=== PATIENT | male | born 1960 | race African-American/Black ===

== ENCOUNTER 2016-10-17 09:56 | Inpatient (IN) | payer OTHER ==
[2016-10-17 11:03] VITALS: BMI 27.4
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
[2016-10-17] MEDS ORDERED: MENTHOL/PHENOL 1 EACH UD MM PRN (12:53)
[2016-10-17] MEDS ORDERED: NICOTINE POLACRILEX 4 MG GUM BC PRN (12:53)
[2016-10-17] MEDS ORDERED: MAGNESIUM CITRATE 300 ML BOTTLE PO PRN (12:53)
[2016-10-17] MEDS ORDERED: LOPERAMIDE HCL 2 MG CAPSULE PO PRN (12:53)
[2016-10-17] MEDS ORDERED: hydrOXYzine PAMOATE 25 MG CAPSULE (FP) PO PRN (12:53)
[2016-10-17] MEDS ORDERED: guaiFENesin/D-METHORPHAN HB 10 ML UNIT-DOSE CUPS PO PRN (12:53)
[2016-10-17] MEDS ORDERED: diphenhydrAMINE HCL 50 MG CAPSULE PO PRN (12:53)
[2016-10-17] MEDS ORDERED: IBUPROFEN 400 MG TABLET (FP) PO PRN (12:53)
[2016-10-17] MEDS ORDERED: P-EPHED 60MG/TRIPROLIDI 2.5MG TABLET PO PRN (12:53)
[2016-10-17] MEDS ORDERED: MAG HYDROX/AL HYDROX/SIMETH 30 ML UNIT-DOSE CUP PO PRN (12:53)
[2016-10-17] MEDS ORDERED: MAGNESIUM HYDROX 2400MG/30ML ORAL SUSPENSION 30 ML CUP PO PRN (12:53)
[2016-10-17] MEDS ORDERED: CLONIDINE HCL PO SCH (14:00)
[2016-10-17] MEDS ORDERED: TUBERCULIN PPD 5 TU/0.1ML VIAL ID ONE (15:45)
[2016-10-17] MEDS: NICOTINE 21 MG/24 HOURS TOPICAL PATCH TD SCH (15:46)
[2016-10-17] MEDS ORDERED: cloNIDine HCL 0.1 MG TABLET PO ONE (16:00)
[2016-10-17 18:32] LABS: MCH 31.3 pg (25.7-33.7); MCHC 34.6 g/dl (32.0-35.9); MEAN CELL VOLUME 90.4 fl (80-96); MEAN PLT VOLUME 9.2 fl (7.5-11.1); PLATELET COUNT 267 K/MM3 (134-434); WHITE BLOOD COUNT 8.6 K/mm3 (4.0-10.0)
[2016-10-17 19:06] LABS: ALBUMIN 3.8 g/dl (3.4-5.0); ANION GAP 8 (8-16); CALCIUM 8.8 mg/dL (8.5-10.1); CO2 31 mmol/L (21-32); GLUCOSE,RANDOM 98 mg/dL (74-106)
[2016-10-17 19:11] LABS: ALK PHOS 63 U/L (45-117); CREATININE 0.9 mg/dL (0.7-1.3); SGOT/AST 53 U/L (15-37); SGPT/ALT 59 U/L (12-78); TOT PROT 7.6 g/dl (6.4-8.2)
[2016-10-17] MEDS: THIAMINE HCL 100 MG TABLET (FP) PO SCH (22:45)
[2016-10-17] MEDS: CLONIDINE HCL PO SCH (22:45)
[2016-10-17 23:14] LABS: URINE APPEARANCE CLEAR; URINE BILIRUBIN NEGATIVE (NEGATIVE); URINE BLOOD NEGATIVE (NEGATIVE); URINE COLOR LT. YELLOW; URINE GLUCOSE (UA) NEGATIVE (NEGATIVE); URINE KETONE NEGATIVE (NEGATIVE); URINE NITRITE NEGATIVE (NEGATIVE); URINE PROTEIN NEGATIVE (NEGATIVE); URINE UROBILINOGEN 0.2 mg/dL (0.2-1.0)
[2016-10-18] MEDS: CLONIDINE HCL PO SCH ×3 (06:14→21:31)
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
[2016-10-18] MEDS: PRENATAL VITAMINS W/ FOLIC ACID TABLET (FP) PO SCH (10:12)
[2016-10-18] MEDS: NICOTINE 21 MG/24 HOURS TOPICAL PATCH TD SCH (10:12)
[2016-10-18 12:38] LABS: HIV 1 & 2 AB NEGATIVE; HIV 1 AGp24 NEGATIVE
[2016-10-18] MEDS: QUEtiapine FUMARATE 50 MG TABLET PO SCH (21:31)
[2016-10-18] MEDS: THIAMINE HCL 100 MG TABLET (FP) PO SCH (21:31)
[2016-10-19] MEDS: CLONIDINE HCL PO SCH ×3 (06:04→21:28)
--- NOTE | 2016-10-19 09:58 | EKG ---
Test Reason : Blood Pressure : / mmHG Vent. Rate : 048 BPM Atrial Rate : 048 BPM P-R Int : 196 ms QRS Dur : 086 ms QT Int : 502 ms P-R-T Axes : 060 058 047 degrees QTc Int : 448 ms SINUS BRADYCARDIA POSSIBLE LEFT ATRIAL ENLARGEMENT LEFT VENTRICULAR HYPERTROPHY ABNORMAL ECG NO PREVIOUS ECGS AVAILABLE Confirmed by AIXA ESCALANTE, SUPRIYA ([id number]) on 10/19/2016 9:58:49 AM Referred By: Alycia Gordon Confirmed By:SUPRIYA KRUSE MD
[2016-10-19] MEDS: PRENATAL VITAMINS W/ FOLIC ACID TABLET (FP) PO SCH (10:14)
[2016-10-19] MEDS: NICOTINE 21 MG/24 HOURS TOPICAL PATCH TD SCH (10:15)
[2016-10-19] MEDS ORDERED: amLODIPine BESYLATE 5 MG TABLET (FP) PO SCH (12:30)
[2016-10-19] MEDS: THIAMINE HCL 100 MG TABLET (FP) PO SCH (21:28)
[2016-10-19] MEDS: QUEtiapine FUMARATE 50 MG TABLET PO SCH (21:29)
[2016-10-20] MEDS: CLONIDINE HCL PO SCH ×3 (05:06→21:37)
[2016-10-20] MEDS: ACETAMINOPHEN 325 MG TABLET (FP) PO PRN (05:06)
[2016-10-20] MEDS: PRENATAL VITAMINS W/ FOLIC ACID TABLET (FP) PO SCH (10:36)
[2016-10-20] MEDS: NICOTINE 21 MG/24 HOURS TOPICAL PATCH TD SCH (10:38)
[2016-10-20] MEDS: amLODIPine BESYLATE 5 MG TABLET (FP) PO SCH ×2 (10:38→21:37)
[2016-10-20] MEDS: THIAMINE HCL 100 MG TABLET (FP) PO SCH (21:37)
[2016-10-20] MEDS: QUEtiapine FUMARATE 50 MG TABLET PO SCH (21:37)
[2016-10-21] MEDS ORDERED: cloNIDine HCL 0.1 MG TABLET PO ONE (00:51)
[2016-10-21] MEDS: ACETAMINOPHEN 325 MG TABLET (FP) PO PRN (00:54)
[2016-10-21] MEDS: CLONIDINE HCL PO SCH ×3 (06:15→21:32)
[2016-10-21] MEDS: NICOTINE 21 MG/24 HOURS TOPICAL PATCH TD SCH (10:14)
[2016-10-21] MEDS: amLODIPine BESYLATE 5 MG TABLET (FP) PO SCH (10:14)
[2016-10-21] MEDS: PRENATAL VITAMINS W/ FOLIC ACID TABLET (FP) PO SCH (10:14)
[2016-10-21] MEDS ORDERED: amLODIPine BESYLATE 10 MG TABLET (FP) PO SCH (13:00)
[2016-10-21] MEDS ORDERED: cloNIDine HCL 0.1 MG TABLET PO SCH (14:00)
[2016-10-21] MEDS: QUEtiapine FUMARATE 50 MG TABLET PO SCH (21:34)
[2016-10-21] MEDS: THIAMINE HCL 100 MG TABLET (FP) PO SCH (21:34)
[2016-10-22] MEDS: CLONIDINE HCL PO SCH (06:24)
[2016-10-22] MEDS: amLODIPine BESYLATE 10 MG TABLET (FP) PO SCH (06:24)
[2016-10-22] MEDS: PRENATAL VITAMINS W/ FOLIC ACID TABLET (FP) PO SCH (10:10)
[2016-10-22] MEDS: NICOTINE 21 MG/24 HOURS TOPICAL PATCH TD SCH (10:10)
[2016-10-22] MEDS: cloNIDine HCL 0.1 MG TABLET PO SCH ×2 (14:28→21:38)
[2016-10-22] MEDS: THIAMINE HCL 100 MG TABLET (FP) PO SCH (21:38)
[2016-10-22] MEDS: QUEtiapine FUMARATE 50 MG TABLET PO SCH (21:40)
[2016-10-23] MEDS: ACETAMINOPHEN 325 MG TABLET (FP) PO PRN (03:31)
[2016-10-23] MEDS: cloNIDine HCL 0.1 MG TABLET PO SCH ×3 (06:50→21:44)
[2016-10-23] MEDS: amLODIPine BESYLATE 10 MG TABLET (FP) PO SCH (06:50)
[2016-10-23] MEDS: PRENATAL VITAMINS W/ FOLIC ACID TABLET (FP) PO SCH (10:39)
[2016-10-23] MEDS: NICOTINE 21 MG/24 HOURS TOPICAL PATCH TD SCH (10:39)
[2016-10-23] MEDS: THIAMINE HCL 100 MG TABLET (FP) PO SCH (21:44)
[2016-10-23] MEDS: QUEtiapine FUMARATE 50 MG TABLET PO SCH (21:44)
[2016-10-24] MEDS: cloNIDine HCL 0.1 MG TABLET PO SCH ×3 (06:24→21:30)
[2016-10-24] MEDS: amLODIPine BESYLATE 10 MG TABLET (FP) PO SCH (06:24)
--- NOTE | 2016-10-24 10:02 | PN ---
S Progress Note Note: patient still running high BP on clonidine 0.2 mg tid and norvasc 10mg daily. Agrees to HCTZ 12.5 mg in AM. Will monitor for efficacy patient aware. Patient is resistant to treatment of his bp, insisting on clonidine but c/o MENDOZA at night.
[2016-10-24] MEDS: PRENATAL VITAMINS W/ FOLIC ACID TABLET (FP) PO SCH (10:21)
[2016-10-24] MEDS: NICOTINE 21 MG/24 HOURS TOPICAL PATCH TD SCH (10:22)
[2016-10-24] MEDS: HYDROCHLOROTHIAZIDE 12.5 MG CAPSULE (FP) PO SCH (10:22)
[2016-10-24] MEDS: ACETAMINOPHEN 325 MG TABLET (FP) PO PRN (15:55)
[2016-10-24] MEDS: QUEtiapine FUMARATE 50 MG TABLET PO SCH (21:30)
[2016-10-24] MEDS: THIAMINE HCL 100 MG TABLET (FP) PO SCH (21:30)
[2016-10-25] MEDS: amLODIPine BESYLATE 10 MG TABLET (FP) PO SCH (07:29)
[2016-10-25] MEDS: cloNIDine HCL 0.1 MG TABLET PO SCH ×3 (07:35→22:03)
[2016-10-25] MEDS: NICOTINE 21 MG/24 HOURS TOPICAL PATCH TD SCH (10:25)
[2016-10-25] MEDS: PRENATAL VITAMINS W/ FOLIC ACID TABLET (FP) PO SCH (10:26)
[2016-10-25] MEDS: HYDROCHLOROTHIAZIDE 12.5 MG CAPSULE (FP) PO SCH (10:26)
[2016-10-25] MEDS: QUEtiapine FUMARATE 50 MG TABLET PO SCH (22:03)
[2016-10-25] MEDS: THIAMINE HCL 100 MG TABLET (FP) PO SCH (22:03)
[2016-10-26] MEDS: cloNIDine HCL 0.1 MG TABLET PO SCH ×3 (07:25→21:44)
[2016-10-26] MEDS: amLODIPine BESYLATE 10 MG TABLET (FP) PO SCH (07:25)
--- NOTE | 2016-10-26 10:30 | PN ---
[facility] Progress Note Note: patient informed of risk of elevated BP particularly after a previous heart attack, risk of additional strokes, and another heart attack discussed and possible renal failure. Patient refusing all bp meds, no coopertive nor wanting additional cousneling regarding the matter, interdisciplinary team met with patient. decision made as this was a voluntary treatment and patient was informed of risks of not complying he has the right to refuse bp mediations. Dr. Tong and counseling team aware will adress in treatment. Nursing aware, will offer medications, patient may refuse treatment and bp monitoring.
[2016-10-26] MEDS: NICOTINE 21 MG/24 HOURS TOPICAL PATCH TD SCH (10:55)
[2016-10-26] MEDS: PRENATAL VITAMINS W/ FOLIC ACID TABLET (FP) PO SCH (10:55)
[2016-10-26] MEDS: HYDROCHLOROTHIAZIDE 12.5 MG CAPSULE (FP) PO SCH (10:55)
[2016-10-26] MEDS: THIAMINE HCL 100 MG TABLET (FP) PO SCH (21:44)
[2016-10-26] MEDS: QUEtiapine FUMARATE 50 MG TABLET PO SCH (21:44)
[2016-10-27] MEDS: cloNIDine HCL 0.1 MG TABLET PO SCH ×3 (06:27→22:54)
[2016-10-27] MEDS: amLODIPine BESYLATE 10 MG TABLET (FP) PO SCH (06:28)
[2016-10-27 06:38] VITALS: TEMP 98.1
[2016-10-27] MEDS: NICOTINE 21 MG/24 HOURS TOPICAL PATCH TD SCH (10:25)
[2016-10-27] MEDS: PRENATAL VITAMINS W/ FOLIC ACID TABLET (FP) PO SCH (10:54)
[2016-10-27] MEDS: HYDROCHLOROTHIAZIDE 12.5 MG CAPSULE (FP) PO SCH (11:07)
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
[2016-10-27] MEDS: THIAMINE HCL 100 MG TABLET (FP) PO SCH (22:54)
[2016-10-27] MEDS: QUEtiapine FUMARATE 50 MG TABLET PO SCH (22:54)
[2016-10-28] MEDS: amLODIPine BESYLATE 10 MG TABLET (FP) PO SCH (06:25)
[2016-10-28] MEDS: cloNIDine HCL 0.1 MG TABLET PO SCH ×3 (06:25→21:41)
[2016-10-28] MEDS: HYDROCHLOROTHIAZIDE 12.5 MG CAPSULE (FP) PO SCH (10:27)
[2016-10-28] MEDS: PRENATAL VITAMINS W/ FOLIC ACID TABLET (FP) PO SCH (10:27)
[2016-10-28] MEDS: NICOTINE 21 MG/24 HOURS TOPICAL PATCH TD SCH (10:28)
[2016-10-28] MEDS: QUEtiapine FUMARATE 50 MG TABLET PO SCH (21:41)
[2016-10-28] MEDS: THIAMINE HCL 100 MG TABLET (FP) PO SCH (21:41)
[2016-10-29] MEDS: amLODIPine BESYLATE 10 MG TABLET (FP) PO SCH (07:01)
[2016-10-29] MEDS: cloNIDine HCL 0.1 MG TABLET PO SCH ×3 (07:01→22:01)
[2016-10-29] MEDS: HYDROCHLOROTHIAZIDE 12.5 MG CAPSULE (FP) PO SCH (11:24)
[2016-10-29] MEDS: NICOTINE 21 MG/24 HOURS TOPICAL PATCH TD SCH (11:24)
[2016-10-29] MEDS: PRENATAL VITAMINS W/ FOLIC ACID TABLET (FP) PO SCH (11:24)
[2016-10-29] MEDS: THIAMINE HCL 100 MG TABLET (FP) PO SCH (22:01)
[2016-10-29] MEDS: QUEtiapine FUMARATE 50 MG TABLET PO SCH (22:01)
[2016-10-30] MEDS: amLODIPine BESYLATE 10 MG TABLET (FP) PO SCH (06:53)
[2016-10-30] MEDS: cloNIDine HCL 0.1 MG TABLET PO SCH ×3 (06:53→21:35)
[2016-10-30] MEDS: PRENATAL VITAMINS W/ FOLIC ACID TABLET (FP) PO SCH (13:49)
[2016-10-30] MEDS: NICOTINE 21 MG/24 HOURS TOPICAL PATCH TD SCH (13:49)
[2016-10-30] MEDS: HYDROCHLOROTHIAZIDE 12.5 MG CAPSULE (FP) PO SCH (13:49)
[2016-10-30] MEDS: THIAMINE HCL 100 MG TABLET (FP) PO SCH (21:35)
[2016-10-30] MEDS: QUEtiapine FUMARATE 50 MG TABLET PO SCH (21:35)
[2016-10-31] MEDS: cloNIDine HCL 0.1 MG TABLET PO SCH (05:52)
[2016-10-31] MEDS: amLODIPine BESYLATE 10 MG TABLET (FP) PO SCH (06:26)
[2016-10-31 06:52] VITALS: BP 143/93; PULSE 68
[2016-10-31] MEDS: HYDROCHLOROTHIAZIDE 12.5 MG CAPSULE (FP) PO SCH (10:08)
[2016-10-31] MEDS: PRENATAL VITAMINS W/ FOLIC ACID TABLET (FP) PO SCH (10:08)
[2016-10-31] MEDS: NICOTINE 21 MG/24 HOURS TOPICAL PATCH TD SCH (10:09)
[2016-10-31] MEDS ORDERED: cloNIDine HCL 0.1 MG TABLET PO SCH (10:24)
--- NOTE | 2016-10-31 10:37 | PN ---
Psychiatric Progress Note Vital Signs: Vital Signs Period Temp Pulse Resp BP Sys/Martinez Pulse Ox Last 24 Hr 98.1 F 67-85 16-18 143-171/93-118 Date of Session: 10/31/16 Chief Complaint:: discharge visit HPI: Patient addressed opioid,alcohol, sedative-hypnotic, nicotine dependence comorbid Bipolar I disorder. ROS: HTN, hyperchlesterolemia medically managed. Current Medications: Active Medications Generic Name Dose Route Start Last Admin Trade Name Freq PRN Reason Stop Dose Admin Acetaminophen 650 mg 10/17/16 12:53 10/24/16 15:55 Tylenol - PO 650 mg Q4H PRN Administration PAIN Al Hydroxide/Mg Hydroxide 30 ml 10/17/16 12:53 Mylanta Oral Suspension - PO Q6H PRN DYSPEPSIA Amlodipine Besylate 10 mg 10/22/16 06:00 10/31/16 06:26 Norvasc - PO Not Given DAILY@0600 SOULEYMANE Clonidine 0.1 mg 10/31/16 10:24 Catapres - PO TID SOULEYMANE Diphenhydramine HCl 50 mg 10/17/16 12:53 Benadryl - PO HSMR1 PRN INSOMNIA Eucalyptus/Menthol/Phenol/Sorbitol 1 each 10/17/16 12:53 Cepastat Lozenge - MM Q4H PRN SORE THROAT Guaifenesin 10 ml 10/17/16 12:53 Robitussin Dm - PO Q6H PRN COUGH Hydrochlorothiazide 12.5 mg 10/24/16 10:00 10/31/16 10:08 Hctz - PO 12.5 mg DAILY SOULEYMANE Administration Hydroxyzine Pamoate 25 mg 10/17/16 12:53 Vistaril - PO Q4H PRN AGITATION Ibuprofen 400 mg 10/17/16 12:53 Motrin - PO Q6H PRN SEVERE PAIN Loperamide HCl 4 mg 10/17/16 12:53 Imodium - PO Q6H PRN DIARRHEA Magnesium Citrate 300 ml 10/17/16 12:53 Citroma - PO Q48H PRN CONSTIPATION Magnesium Hydroxide 30 ml 10/17/16 12:53 Milk Of Magnesia - PO DAILY PRN CONSTIPATION Nicotine 21 mg 10/17/16 13:00 10/31/16 10:09 Nicoderm Patch - TD Not Given DAILY SOULEYMANE Nicotine Polacrilex 4 mg 10/17/16 12:53 Nicorette Gum - BC Q2H PRN NICOTINE REPLACEMENT RX Multivit/Folic Acid/Iron 1 tab 10/18/16 10:00 10/31/16 10:08 Vitamins (Sjr) - PO 1 tab DAILY SOULEYMANE Administration Pseudoephedrine/Triprolidine 1 combo 10/17/16 12:53 Actifed - PO TID PRN NASAL CONGESTION Quetiapine Fumarate 50 mg 10/18/16 22:00 10/30/16 21:35 Seroquel - PO Not Given HS SOULEYMANE Thiamine HCl 100 mg 10/17/16 22:00 10/30/16 21:35 Vitamin B1 - PO Not Given HS SOULEYMANE Current Side Effect: No Lab tests ordered: No Lab tests reviewed: Yes Provider note:: Patient has completed today his treatment and met his goals, he will conitnue to address his issues at [place] [facility] outpatient treatment program. He verbalized understanding the negative consequences of his drinking and using drugs on major life areas including physical and mental health. He reports that Seroquel has been effective in terms of mood and sleep improvement, medication well tolerated and scripts provied for 30 days.He was educated on the importance of taking his medication as well not mixing his medication with his drugs. Patient will follow up by a psychiatrist at [facility]. Coping skills and utilization of support system to prevent relapses have been discussed with the patient.Patient is stable for discharge today. Total face to face time:: 35 Mental Status Exam - Mental Status Exam Alert and Oriented to: Time, Place, Person Cognitive Function: Good Patient Appearance: Well Groomed Mood: Hopeful Affect: Appropriate, Mood Congruent Patient Behavior: Appropriate, Cooperative Speech Pattern: Clear, Appropriate Voice Loudness: Normal Thought Process: Intact, Goal Oriented Thought Disorder: Not Present Hallucinations: Denies Suicidal Ideation: Denies Homicidal Ideation: Denies Insight/Judgement: Fair Sleep: Fair Appetite: Fair Muscle strength/Tone: Normal Gait/Station: Normal Psychiatric Treatment Plan - Problem List (1) Nicotine dependence Current Visit: Yes Qualifiers: Nicotine product type: cigarettes Substance use status: in withdrawal Qualified Code(s): F17.213 - Nicotine dependence, cigarettes, with withdrawal (2) Hypercholesterolemia Current Visit: Yes (3) Hypertension Current Visit: Yes Qualifiers: Hypertension type: essential hypertension Qualified Code(s): I10 - Essential (primary) hypertension (4) Opiate dependence Current Visit: Yes (5) Sedative dependence Current Visit: Yes (6) Bipolar I disorder Current Visit: Yes (7) Alcohol dependence Current Visit: Yes
== END 2016-10-31 11:26 | disposition home or self-care (01) | DRG 772 ==
LOC: YASAS 09:56 → Y5N 14:13
PROVIDERS: ADMIT Psychiatry & Neurology Psychiatry; ATTEND Psychiatry & Neurology Psychiatry
PROC: HZ42ZZZ Group Counseling for Substance Abuse Treatment, Cognitive-Behavioral (ICD-10-PCS; principal; 2016-10-17)
DX: F11.20 Opioid dependence, uncomplicated (principal); F13.20 Sedative, hypnotic or anxiolytic dependence, uncomplicated; F10.20 Alcohol dependence, uncomplicated; F17.210 Nicotine dependence, cigarettes, uncomplicated; F31.89 Other bipolar disorder; I10 Essential (primary) hypertension; E78.00 Pure hypercholesterolemia, unspecified; Z91.14 Patient's other noncompliance with medication regimen; M54.5 Low back pain; G89.29 Other chronic pain; Z86.69 Personal history of other diseases of the nervous system and sense organs; Z87.828 Personal history of other (healed) physical injury and trauma; Z91.018 Allergy to other foods; Z91.5 Personal history of self-harm
CPT/HCPCS: 36415; 80053; 81003; 85027; 86593; 87389; 93005; 93010

== ENCOUNTER 2017-10-23 22:37 | Inpatient (IN) | payer OTHER ==
[2017-10-23 23:25] VITALS: BMI 29.1
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
[2017-10-24] MEDS ORDERED: MAGNESIUM CITRATE 300 ML BOTTLE PO PRN (01:42)
[2017-10-24] MEDS ORDERED: NICOTINE POLACRILEX 2 MG GUM BC PRN (01:42)
[2017-10-24] MEDS ORDERED: IBUPROFEN 400 MG TABLET (FP) PO PRN (01:42)
[2017-10-24] MEDS ORDERED: guaiFENesin/D-METHORPHAN HB 10 ML UNIT-DOSE CUPS PO PRN (01:42)
[2017-10-24] MEDS ORDERED: P-EPHED 60MG/TRIPROLIDI 2.5MG TABLET PO PRN (01:42)
[2017-10-24] MEDS ORDERED: METHADONE HCL 10 MG TABLET (FOR DETOX USE ONLY) PO ONE ×3 (01:42→22:00)
[2017-10-24] MEDS ORDERED: LOPERAMIDE HCL 2 MG CAPSULE PO PRN (01:42)
[2017-10-24] MEDS ORDERED: MENTHOL/PHENOL 1 EACH UD MM PRN (01:42)
[2017-10-24] MEDS ORDERED: MAGNESIUM HYDROX 2400MG/30ML ORAL SUSPENSION 30 ML CUP PO PRN (01:42)
[2017-10-24] MEDS ORDERED: ACETAMINOPHEN 325 MG TABLET (FP) PO PRN (01:42)
[2017-10-24] MEDS ORDERED: MAG HYDROX/AL HYDROX/SIMETH 30 ML UNIT-DOSE CUP PO PRN (01:42)
[2017-10-24] MEDS: chlordiazePOXIDE HCL 25 MG CAPSULE PO PRN ×2 (03:37→09:42)
[2017-10-24] MEDS: cloNIDine HCL 0.1 MG TABLET PO SCH ×3 (05:04→13:57)
[2017-10-24] MEDS: chlordiazePOXIDE HCL 25 MG CAPSULE PO SCH ×2 (05:04→11:00)
[2017-10-24] MEDS ORDERED: NICOTINE 21 MG/24 HOURS TOPICAL PATCH TD SCH (10:00)
[2017-10-24] MEDS ORDERED: amLODIPine BESYLATE 10 MG TABLET (FP) PO SCH (10:00)
[2017-10-24] MEDS ORDERED: PRENATAL VITAMINS W/ FOLIC ACID TABLET (FP) PO SCH (10:00)
[2017-10-24 10:19] LABS: HEMATOCRIT 35.7 % (35.4-49); HEMOGLOBIN 11.9 GM/dL (11.7-16.9); MCH 30.4 pg (25.7-33.7); MCHC 33.3 g/dl (32.0-35.9); MEAN CELL VOLUME 91.2 fl (80-96); MEAN PLT VOLUME 9.1 fl (7.5-11.1); PLATELET COUNT 213 K/MM3 (134-434); RBC 3.92 M/mm3 (4.00-5.60); WHITE BLOOD COUNT 7.3 K/mm3 (4.0-10.0)
[2017-10-24 10:35] LABS: CHLORIDE 105 mmol/L (98-107); POTASSIUM 3.5 mmol/L (3.5-5.1); SODIUM 143 mmol/L (136-145)
[2017-10-24 11:17] LABS: ALBUMIN 3.3 g/dl (3.4-5.0); ALK PHOS 54 U/L (45-117); ANION GAP 10 MMOL/L (8-16); BILIRUBIN,TOTAL 0.9 mg/dL (0.2-1); BLOOD UREA NITROGEN 15 mg/dL (7-18); CALCIUM 8.3 mg/dL (8.5-10.1); CO2 28 mmol/L (21-32); SGOT/AST 22 U/L (15-37); SGPT/ALT 20 U/L (13-61); TOT PROT 6.7 g/dl (6.4-8.2)
--- NOTE | 2017-10-24 12:04 | PN ---
[facility] CIWA - CIWA Score Nausea/Vomitin-Mild Nausea/No Vomiting Muscle Tremors: 3 Anxiety: 3 Agitation: 3 Paroxysmal Sweats: 1-Minimal Palms Moist Orientation: 1-Uncertain about Date Tacttile Disturbances: 1-Very Mild Itch/Numbness Auditory Disturbances: 0-None Visual Disturbances: 0-None Headache: 1-Very Mild CIWA-Ar Total Score: 14 BHS COWS - Scale Resting Pulse: 1= [place] 81-100 Sweatin= Chills/Flushing Restless Observation: 1= Difficult to Sit Still Pupil Size: 0= Normal to Room Light Bone or Joint Aches: 2= Severe Diffuse Aches Runny Nose/ Eye Tearin= Runny Nose/Eyes GI Upset > 30mins: 2= Nausea/Diarrhea Tremor Observation of Outstretched Hands: 2= Slight Tremor Visible Yawning Observation: 2= >3x During Session Anxiety or Irritability: 2=Irritable/Anxious Goose Flesh Skin: 0=Smooth Skin COWS Score: 15 [facility] Progress Note (SOAP) Subjective: sweat tremor restlessness irritable body aches trouble sleep at night Objective: 10/24/17 12:07 Vital Signs Temperature 97.8 F 10/24/17 09:47 Pulse Rate 75 10/24/17 09:47 Respiratory Rate 20 10/24/17 09:47 Blood Pressure 184/111 10/24/17 09:47 O2 Sat by Pulse Oximetry (%) Laboratory Last Values WBC 7.3 K/mm3 (4.0-10.0) 10/24/17 07:00 RBC 3.92 M/mm3 (4.00-5.60) L 10/24/17 07:00 Hgb 11.9 GM/dL (11.7-16.9) 10/24/17 07:00 Hct 35.7 % (35.4-49) 10/24/17 07:00 MCV 91.2 fl (80-96) 10/24/17 07:00 MCH 30.4 pg (25.7-33.7) 10/24/17 07:00 MCHC 33.3 g/dl (32.0-35.9) 10/24/17 07:00 RDW 13.0 % (11.9-15.9) 10/24/17 07:00 Plt Count 213 K/MM3 (134-434) D 10/24/17 07:00 MPV 9.1 fl (7.5-11.1) 10/24/17 07:00 Sodium 143 mmol/L (136-145) 10/24/17 07:00 Potassium 3.5 mmol/L (3.5-5.1) 10/24/17 07:00 Chloride 105 mmol/L (98-107) 10/24/17 07:00 Carbon Dioxide 28 mmol/L (21-32) 10/24/17 07:00 Anion Gap 10 MMOL/L (8-16) 10/24/17 07:00 BUN 15 mg/dL (7-18) 10/24/17 07:00 Creatinine 1.0 mg/dL (0.55-1.3) 10/24/17 07:00 Creat Clearance w eGFR > 60 (>60) 10/24/17 07:00 Calcium 8.3 mg/dL (8.5-10.1) L 10/24/17 07:00 Total Bilirubin 0.9 mg/dL (0.2-1) 10/24/17 07:00 AST 22 U/L (15-37) 10/24/17 07:00 ALT 20 U/L (13-61) 10/24/17 07:00 Alkaline Phosphatase 54 U/L (45-117) 10/24/17 07:00 Total Protein 6.7 g/dl (6.4-8.2) 10/24/17 07:00 Albumin 3.3 g/dl (3.4-5.0) L 10/24/17 07:00 RPR Titer Nonreactive (NONREACTIVE) 10/24/17 07:00 lab noted patient refuses clonidine refuses amlodipine offer methadone and librium prn as scheduled along with routine dose Assessment: 10/24/17 12:08 withdrawal sx hypertension Plan: continue detox librium 50 mg one stat
[2017-10-24 12:24] LABS: GLUCOSE,RANDOM 116 mg/dL (74-106)
[2017-10-24 13:49] VITALS: BP 185/113; PULSE 79; TEMP 98.2
[2017-10-24] MEDS ORDERED: chlordiazePOXIDE HCL 25 MG CAPSULE PO ONE ×2 (14:00)
--- NOTE | 2017-10-24 16:45 | EKG ---
Test Reason : Blood Pressure : / mmHG Vent. Rate : 063 BPM Atrial Rate : 063 BPM P-R Int : 180 ms QRS Dur : 086 ms QT Int : 464 ms P-R-T Axes : 055 056 047 degrees QTc Int : 474 ms NORMAL SINUS RHYTHM VOLTAGE CRITERIA FOR LEFT VENTRICULAR HYPERTROPHY ABNORMAL ECG WHEN COMPARED WITH ECG OF 18-OCT-2016 11:13, NO SIGNIFICANT CHANGE WAS FOUND Confirmed by Orlando Her ([id number]) on 10/24/2017 4:44:52 PM Referred By: Confirmed By:Orlando Her
--- NOTE | 2017-10-24 16:49 | DS ---
[facility] Detox Discharge Summary Admission Date: 10/24/17 Discharge Date: 10/24/17 - History Present History: Alcohol Dependence, Opioid Dependence Additional Comments: admitted 10/24/17 for alcohol opiate benzo withdrawal sx insists to leave the detox that "I have the money"patient stated that methadone offer too small dose requests every few hours to have methadone patient received one stat dose of librium due to bp elevation that the patient refuses to take clonidine and amlodipine - Physical Exam Results Vital Signs: Vital Signs Temperature 98.2 F 10/24/17 13:46 Pulse Rate 79 10/24/17 13:46 Respiratory Rate 18 10/24/17 13:46 Blood Pressure 185/113 10/24/17 13:46 O2 Sat by Pulse Oximetry (%) Pertinent Admission Physical Exam Findings: alcohol and opiate withdrawal sx Vital Signs Temperature 98.2 F 10/24/17 13:46 Pulse Rate 79 10/24/17 13:46 Respiratory Rate 18 10/24/17 13:46 Blood Pressure 185/113 10/24/17 13:46 O2 Sat by Pulse Oximetry (%) Laboratory Last Values WBC 7.3 K/mm3 (4.0-10.0) 10/24/17 07:00 RBC 3.92 M/mm3 (4.00-5.60) L 10/24/17 07:00 Hgb 11.9 GM/dL (11.7-16.9) 10/24/17 07:00 Hct 35.7 % (35.4-49) 10/24/17 07:00 MCV 91.2 fl (80-96) 10/24/17 07:00 MCH 30.4 pg (25.7-33.7) 10/24/17 07:00 MCHC 33.3 g/dl (32.0-35.9) 10/24/17 07:00 RDW 13.0 % (11.9-15.9) 10/24/17 07:00 Plt Count 213 K/MM3 (134-434) D 10/24/17 07:00 MPV 9.1 fl (7.5-11.1) 10/24/17 07:00 Sodium 143 mmol/L (136-145) 10/24/17 07:00 Potassium 3.5 mmol/L (3.5-5.1) 10/24/17 07:00 Chloride 105 mmol/L (98-107) 10/24/17 07:00 Carbon Dioxide 28 mmol/L (21-32) 10/24/17 07:00 Anion Gap 10 MMOL/L (8-16) 10/24/17 07:00 BUN 15 mg/dL (7-18) 10/24/17 07:00 Creatinine 1.0 mg/dL (0.55-1.3) 10/24/17 07:00 Creat Clearance w eGFR > 60 (>60) 10/24/17 07:00 Random Glucose 116 mg/dL (74-106) H 10/24/17 07:00 Calcium 8.3 mg/dL (8.5-10.1) L 10/24/17 07:00 Total Bilirubin 0.9 mg/dL (0.2-1) 10/24/17 07:00 AST 22 U/L (15-37) 10/24/17 07:00 ALT 20 U/L (13-61) 10/24/17 07:00 Alkaline Phosphatase 54 U/L (45-117) 10/24/17 07:00 Total Protein 6.7 g/dl (6.4-8.2) 10/24/17 07:00 Albumin 3.3 g/dl (3.4-5.0) L 10/24/17 07:00 RPR Titer Nonreactive (NONREACTIVE) 10/24/17 07:00 labn oted - Treatment Hospital Course: Detox Protocol Followed, Responded well Patient has Accepted a Rehab Referral to: as per counselor arranged - Medication Discharge Medications: Ambulatory Orders Quetiapine Fumarate [Seroquel -] 50 mg PO HS 10/17/16 Quetiapine Fumarate [Seroquel -] 50 mg PO HS #30 tablet 10/31/16 cloNIDine HCL [Catapres -] 0.1 mg PO TID #90 tab 10/31/16 - Diagnosis (1) Alcohol dependence Status: Acute Qualifiers: Substance use status: uncomplicated Qualified Code(s): F10.20 - Alcohol dependence, uncomplicated (2) Drug-induced mood disorder Status: Suspected (3) Nicotine dependence Status: Acute Qualifiers: Nicotine product type: cigarettes Substance use status: in withdrawal Qualified Code(s): F17.213 - Nicotine dependence, cigarettes, with withdrawal (4) Opiate dependence Status: Acute Qualifiers: Substance use status: uncomplicated Qualified Code(s): F11.20 - Opioid dependence, uncomplicated (5) Alcohol dependence with uncomplicated withdrawal Status: Acute (6) Hypercholesterolemia Status: Chronic (7) Hypertension Status: Chronic Qualifiers: Hypertension type: essential hypertension Qualified Code(s): I10 - Essential (primary) hypertension (8) Opioid dependence with withdrawal Status: Acute (9) Sedative, hypnotic or anxiolytic dependence with withdrawal, uncomplicated Status: Acute - AMA Did Patient Leave Against Medical Advice: Yes
--- NOTE | 2017-10-24 17:26 | PN ---
[facility] Progress Note Note: Psychiatric nurse pracitioner note: Malthouse Laborer entered patient's room to speak to Mr. Hodge concerning the psychiatric consultation. Malthouse Laborer informed that patient signed out AMA.
[2017-10-24] MEDS ORDERED: THIAMINE HCL 100 MG TABLET (FP) PO SCH (22:00)
[2017-10-24] MEDS ORDERED: MELATONIN 5 MG TABLETS PO PRN (22:00)
[2017-10-25] MEDS ORDERED: chlordiazePOXIDE HCL 25 MG CAPSULE PO SCH (05:00)
[2017-10-25] MEDS ORDERED: METHADONE HCL 5 MG TABLET (FOR DETOX USE ONLY) PO SCH (10:00)
[2017-10-26] MEDS ORDERED: chlordiazePOXIDE 5 MG CAPSULE PO SCH (05:00)
[2017-10-26] MEDS ORDERED: METHADONE HCL 5 MG TABLET (FOR DETOX USE ONLY) PO SCH (10:00)
[2017-10-27] MEDS ORDERED: chlordiazePOXIDE HCL 10 MG CAPSULE PO SCH (05:00)
[2017-10-28] MEDS ORDERED: METHADONE HCL 10 MG TABLET (FOR DETOX USE ONLY) PO SCH (10:00)
[2017-10-29] MEDS ORDERED: METHADONE HCL 10 MG TABLET (FOR DETOX USE ONLY) PO SCH (06:00)
== END 2017-10-24 14:40 | disposition home or self-care (01) | DRG 773 ==
LOC: YASAS 22:37 → Y6N 10-24 02:31
PROC: HZ2ZZZZ Detoxification Services for Substance Abuse Treatment (ICD-10-PCS; principal; 2017-10-24)
DX: F11.23 Opioid dependence with withdrawal (principal); F10.230 Alcohol dependence with withdrawal, uncomplicated; F13.230 Sedative, hypnotic or anxiolytic dependence with withdrawal, uncomplicated; F12.10 Cannabis abuse, uncomplicated; F17.213 Nicotine dependence, cigarettes, with withdrawal; F19.24 Other psychoactive substance dependence with psychoactive substance-induced mood disorder; F31.9 Bipolar disorder, unspecified; I10 Essential (primary) hypertension; E78.00 Pure hypercholesterolemia, unspecified; I25.2 Old myocardial infarction; R56.9 Unspecified convulsions; M54.5 Low back pain; G89.29 Other chronic pain; Z91.5 Personal history of self-harm
CPT/HCPCS: 36415; 80053; 85027; 86593; 93005; 93010; J0735

== ENCOUNTER 2017-12-25 16:15 | Inpatient (IN) | payer OTHER ==
[~2017-12-25 16:15] MED LIST: METHADONE HCL 10 MG TABLET (FOR DETOX USE ONLY) PO ONE
[2017-12-25 19:50] VITALS: BMI 28.6
[2017-12-25] MEDS ORDERED: METHADONE HCL 10 MG TABLET (FOR DETOX USE ONLY) PO ONE (22:00)
[2017-12-25] MEDS ORDERED: MELATONIN 5 MG TABLETS PO PRN (22:00)
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
[2017-12-25] MEDS ORDERED: NICOTINE POLACRILEX 2 MG GUM BC PRN (23:50)
[2017-12-25] MEDS ORDERED: guaiFENesin/D-METHORPHAN HB 10 ML UNIT-DOSE CUPS PO PRN (23:50)
[2017-12-25] MEDS ORDERED: ACETAMINOPHEN 325 MG TABLET (FP) PO PRN (23:50)
[2017-12-25] MEDS ORDERED: MAGNESIUM HYDROX 2400MG/30ML ORAL SUSPENSION 30 ML CUP PO PRN (23:50)
[2017-12-25] MEDS ORDERED: chlordiazePOXIDE HCL 25 MG CAPSULE PO PRN (23:50)
[2017-12-25] MEDS ORDERED: MAGNESIUM CITRATE 300 ML BOTTLE PO PRN (23:50)
[2017-12-25] MEDS ORDERED: P-EPHED 60MG/TRIPROLIDI 2.5MG TABLET PO PRN (23:50)
[2017-12-25] MEDS ORDERED: MAG HYDROX/AL HYDROX/SIMETH 30 ML UNIT-DOSE CUP PO PRN (23:50)
[2017-12-25] MEDS ORDERED: MENTHOL/PHENOL 1 EACH UD MM PRN (23:50)
[2017-12-25] MEDS ORDERED: LOPERAMIDE HCL 2 MG CAPSULE PO PRN (23:50)
[2017-12-25] MEDS ORDERED: IBUPROFEN 400 MG TABLET (FP) PO PRN (23:50)
[2017-12-26] MEDS ORDERED: METHADONE HCL 10 MG TABLET (FOR DETOX USE ONLY) PO ONE ×5 (01:00→23:00)
[2017-12-26] MEDS ORDERED: chlordiazePOXIDE HCL 25 MG CAPSULE PO ONE (01:00)
[2017-12-26] MEDS: cloNIDine HCL 0.1 MG TABLET PO SCH ×4 (02:03→22:45)
[2017-12-26] MEDS: chlordiazePOXIDE HCL 25 MG CAPSULE PO SCH ×6 (02:07→22:01)
[2017-12-26] MEDS ORDERED: chlordiazePOXIDE HCL 25 MG CAPSULE PO SCH (05:00)
[2017-12-26] MEDS ORDERED: METHADONE HCL 10 MG TABLET PO ONE (10:00)
[2017-12-26] MEDS ORDERED: METHADONE HCL 10 MG TABLET (FOR DETOX USE ONLY) PO SCH (10:00)
[2017-12-26 10:10] LABS: HEMATOCRIT 36.1 % (35.4-49); HEMOGLOBIN 11.8 GM/dL (11.7-16.9); MCH 29.7 pg (25.7-33.7); MCHC 32.7 g/dl (32.0-35.9); MEAN CELL VOLUME 90.9 fl (80-96); PLATELET COUNT 225 K/MM3 (134-434); RBC 3.98 M/mm3 (4.00-5.60); RDW 13.4 % (11.9-15.9); WHITE BLOOD COUNT 7.4 K/mm3 (4.0-10.0)
[2017-12-26] MEDS: PRENATAL VITAMINS W/ FOLIC ACID TABLET (FP) PO SCH (10:23)
[2017-12-26] MEDS: NICOTINE 14 MG/24 HOURS TOPICAL PATCH TD SCH (10:24)
[2017-12-26 10:33] LABS: ALBUMIN 3.3 g/dl (3.4-5.0); ALK PHOS 53 U/L (45-117); ANION GAP 7 MMOL/L (8-16); BILIRUBIN,TOTAL 0.8 mg/dL (0.2-1); BLOOD UREA NITROGEN 21 mg/dL (7-18); CALCIUM 8.6 mg/dL (8.5-10.1); CHLORIDE 102 mmol/L (98-107); CO2 31 mmol/L (21-32); CREATININE 1.1 mg/dL (0.55-1.3); GLUCOSE,RANDOM 94 mg/dL (74-106); POTASSIUM 3.4 mmol/L (3.5-5.1); SGOT/AST 17 U/L (15-37); SGPT/ALT 20 U/L (13-61); SODIUM 141 mmol/L (136-145); TOT PROT 6.7 g/dl (6.4-8.2)
--- NOTE | 2017-12-26 10:46 | PN ---
S Progress Note Note: PATIENT PRESENTS FOR DETOX FROM ETOH AND HEROIN AND ADMITTED LATE LAST NIGHT. PATIENT C/O SHAKES, IRRITABILITY, BODY ACHES AND SWEATING. Vital Signs Temperature 98 F 12/26/17 09:28 Pulse Rate 68 12/26/17 09:28 Respiratory Rate 18 12/26/17 09:28 Blood Pressure 150/87 12/26/17 09:28 O2 Sat by Pulse Oximetry (%) Laboratory Tests 12/26/17 12/26/17 07:00 07:00 WBC 7.4 RBC 3.98 L Hgb 11.8 Hct 36.1 MCV 90.9 MCH 29.7 MCHC 32.7 RDW 13.4 Plt Count 225 MPV 9.0 Sodium 141 Potassium 3.4 L Chloride 102 Carbon Dioxide 31 Anion Gap 7 L BUN 21 H Creatinine 1.1 Creat Clearance w eGFR > 60 Random Glucose 94 Calcium 8.6 Total Bilirubin 0.8 AST 17 ALT 20 Alkaline Phosphatase 53 Total Protein 6.7 Albumin 3.3 L PE: SKIN WARM, +FACIAL MOISTURE CAR S1S2 RESP CTA BL EXT + TREMORS, FULL ROM, AMB AD NORI ALERT AND ORIENTED X 3 A/P WITHDRAWAL SX CONTINUE DETOX ENCOURAGE ORAL FLUIDS REPEAT POTASSIUM LEVEL IN AM CONTINUE TO MONITOR CLINICALLY
[2017-12-26 15:25] LABS: URINE APPEARANCE CLOUDY; URINE BILIRUBIN NEGATIVE (<2.0 mg/dL); URINE COLOR YELLOW; URINE GLUCOSE (UA) 3+ (NEGATIVE); URINE KETONE NEGATIVE (NEGATIVE); URINE LEUK ESTERASE NEGATIVE (NEGATIVE); URINE NITRITE NEGATIVE (NEGATIVE); URINE PROTEIN NEGATIVE (NEGATIVE); URINE UROBILINOGEN NEGATIVE mg/dL (0.2-1.0)
--- NOTE | 2017-12-26 17:46 | CONSULT ---
[facility] Psychiatric Consult - Data Date of interview: 12/26/17 Admission source: [facility] Identifying data: Readmission to [facility] for this 57 y/o AA male seeking detoxification treatment, on , for alcohol, heroin, cocaine, cannabis and benzodiazepine (xanax) dependence. Patient is single, a father of three, domiciled, unemployed and supported on welfare. Substance Abuse History: Confirmed by the patient in this interview. Details in current [facility] report : Smoking history: Current every day smoker. Have you smoked in the past 12 months: Yes. Aproximately how many cigarettes per day: 40. Cigars Per Day: 0. Hx Chewing Tobacco Use: No. Initiated information on smoking cessation: Yes. 'Breaking Loose' booklet given: 12/25/17. - Substance & Tx. History. Hx Alcohol Use: Yes. Hx Substance Use: Yes. Substance Use Type : Alcohol, Cocaine, Heroin, Marijuana, Opiates. Hx Substance Use Treatment: Yes ([facility]). - Substances Abused. Heroin. Route: Inhalation. Frequency: Daily. Amount used: 8 bags. Age of first use: 16. Date of Last Use: 12/25/17. Alcohol. Route: Oral. Frequency: Daily. Amount used: Vodka - 2 PINTS. Age of first use: 11. Date of Last Use: Medical History: Scoliosis, dyslipidemia, chronic lumbar pain, hypertension, migraine headaches and a history of withdrawal-related seizures. Psychiatric History: Patient endorses a history of multiple psychiatric hospitalizations ([facility], [facility], [facility]). Diagnosed with Bipolar Disorder. Mr Hodge declares that he has stopped taking psychotropic medications (seroquel, klonopin, xanax) for past four years and he estimates that he " does not need them ". No contact or affiliation with psychiatric [employer] care providers. Onset of psychiatric disturbances : 30 years ago. Patient denies history of suicide attempts. Physical/Sexual Abuse/Trauma History: Patient denies. Additional Comment: Urine Drug Screen Results: THC-Marijuana, CARA-Cocaine, OPI- Opiates. Noted. Mental Status Exam - Mental Status Exam Alert and Oriented to: Time, Place, Person Cognitive Function: Good Patient Appearance: Well Groomed Mood: Anxious, Hopeful, Irritable Affect: Mood Congruent Patient Behavior: Fatigued, Cooperative Speech Pattern: Clear, Appropriate Voice Loudness: Normal Thought Process: Intact, Goal Oriented Thought Disorder: Not Present Hallucinations: Denies Suicidal Ideation: Denies Homicidal Ideation: Denies Insight/Judgement: Poor Sleep: Well Appetite: Good Muscle strength/Tone: Normal Gait/Station: Normal Psychiatric Findings - Problem List ([place] 1, 2,3) (1) Alcohol dependence with uncomplicated withdrawal Current Visit: Yes Status: Acute (2) Opioid dependence with withdrawal Current Visit: Yes Status: Acute (3) Cocaine dependence Current Visit: Yes Status: Acute (4) Cannabis dependence Current Visit: Yes Status: Acute (5) Nicotine dependence Current Visit: Yes Status: Acute Qualifiers: Nicotine product type: cigarettes Substance use status: uncomplicated Qualified Code(s): F17.210 - Nicotine dependence, cigarettes, uncomplicated (6) Drug-induced mood disorder Current Visit: Yes Status: Suspected - Initial Treatment Plan Initial Treatment Plan: Psychoeducation. Detoxification. Sleep hygiene. NA/AA meetings. Group, supportive therapy. Observation.
[2017-12-26] MEDS: chlordiazePOXIDE HCL 25 MG CAPSULE PO PRN (19:38)
[2017-12-26] MEDS ORDERED: THIAMINE HCL 100 MG TABLET (FP) PO SCH (22:00)
[2017-12-27] MEDS: chlordiazePOXIDE HCL 25 MG CAPSULE PO PRN (02:01)
[2017-12-27] MEDS ORDERED: chlordiazePOXIDE 5 MG CAPSULE PO SCH (05:00)
[2017-12-27] MEDS: cloNIDine HCL 0.1 MG TABLET PO SCH (05:27)
[2017-12-27] MEDS: chlordiazePOXIDE HCL 25 MG CAPSULE PO SCH ×2 (05:27→10:01)
[2017-12-27 09:37] VITALS: BP 138/93; PULSE 70; TEMP 98.4
[2017-12-27] MEDS ORDERED: METHADONE HCL 5 MG TABLET (FOR DETOX USE ONLY) PO SCH (10:00)
[2017-12-27] MEDS ORDERED: METHADONE HCL 10 MG TABLET (FOR DETOX USE ONLY) PO SCH (10:00)
[2017-12-27] MEDS: PRENATAL VITAMINS W/ FOLIC ACID TABLET (FP) PO SCH (10:01)
[2017-12-27] MEDS: NICOTINE 14 MG/24 HOURS TOPICAL PATCH TD SCH (10:02)
[2017-12-27] MEDS ORDERED: ONDANSETRON *ODT* 4 MG TABLET SL PRN (10:23)
--- NOTE | 2017-12-27 13:36 | DS ---
[facility] Detox Discharge Summary Admission Date: 12/26/17 Discharge Date: 12/27/17 - History Present History: Alcohol Dependence, Cannabis Dependence, Cocaine Dependence, Opioid Dependence Additional Comments: Patient decided to leave AMA despite encouragement from staff to complete detox. Patient instructed to call 911 if feeling sick or any withdrawal symptoms and to see his PCP within 3 days. Rx for K Dur 40 Meq PO daily x 2 days sent to his pharmacy. Pertinent Past History: Alcohol dependence Cocaine dependence Opioid dependence Cannabis dependenc Nicotine dependence HLD HTN LBP Seizure disorder - Physical Exam Results Vital Signs: Vital Signs Temperature 98.4 F 12/27/17 09:37 Pulse Rate 70 12/27/17 09:37 Respiratory Rate 18 12/27/17 09:37 Blood Pressure 138/93 12/27/17 09:37 O2 Sat by Pulse Oximetry (%) Pertinent Admission Physical Exam Findings: Withdrawal symptoms Laboratory Tests 12/26/17 12/26/17 12/26/17 07:00 07:00 07:00 WBC 7.4 RBC 3.98 L Hgb 11.8 Hct 36.1 MCV 90.9 MCH 29.7 MCHC 32.7 RDW 13.4 Plt Count 225 MPV 9.0 Sodium 141 Potassium 3.4 L Chloride 102 Carbon Dioxide 31 Anion Gap 7 L BUN 21 H Creatinine 1.1 Creat Clearance w eGFR > 60 Random Glucose 94 Calcium 8.6 Total Bilirubin 0.8 AST 17 ALT 20 Alkaline Phosphatase 53 Total Protein 6.7 Albumin 3.3 L Urine Color Urine Appearance Urine pH Ur Specific [place] Urine Protein Urine Glucose (UA) Urine Ketones Urine Blood Urine Nitrite Urine Bilirubin Urine Urobilinogen Ur Leukocyte Esterase RPR Titer Nonreactive HIV 1&2 Antibody Screen HIV P24 Antigen 12/26/17 12/26/17 12/27/17 08:30 11:20 07:00 WBC RBC Hgb Hct MCV MCH MCHC RDW Plt Count MPV Sodium Potassium 3.3 L Chloride Carbon Dioxide Anion Gap BUN Creatinine Creat Clearance w eGFR Random Glucose Calcium Total Bilirubin AST ALT Alkaline Phosphatase Total Protein Albumin Urine Color Yellow Urine Appearance Cloudy Urine pH 7.0 Ur Specific [place] 1.013 Urine Protein Negative Urine Glucose (UA) 3+ H Urine Ketones Negative Urine Blood Negative Urine Nitrite Negative Urine Bilirubin Negative Urine Urobilinogen Negative Ur Leukocyte Esterase Negative RPR Titer HIV 1&2 Antibody Screen Negative HIV P24 Antigen Negative Labs reviewed: UA shows 3+ glucose, K 3.3, bun 21; potassium supplement Rx sent to pharmacy (K Dur 40 Meq daily x 2 days), encouraged PO water intake and to follow up with PCP within 3 days - Medication Discharge Medications: Ambulatory Orders Quetiapine Fumarate [Seroquel -] 50 mg PO HS 10/17/16 Quetiapine Fumarate [Seroquel -] 50 mg PO HS #30 tablet 10/31/16 cloNIDine HCL [Catapres -] 0.1 mg PO TID #90 tab 10/31/16 - Diagnosis (1) Glycosuria Current Visit: Yes Status: Acute (2) Azotemia Current Visit: Yes Status: Acute (3) Alcohol dependence with uncomplicated withdrawal Current Visit: Yes Status: Acute (4) Cannabis dependence Current Visit: Yes Status: Acute (5) Cocaine dependence Current Visit: Yes Status: Acute (6) Nicotine dependence Current Visit: Yes Status: Acute Qualifiers: Nicotine product type: cigarettes Substance use status: uncomplicated Qualified Code(s): F17.210 - Nicotine dependence, cigarettes, uncomplicated (7) Opioid dependence with withdrawal Current Visit: Yes Status: Acute (8) Hypercholesterolemia Current Visit: Yes Status: Chronic (9) Hypertension Current Visit: Yes Status: Chronic Qualifiers: Hypertension type: essential hypertension Qualified Code(s): I10 - Essential (primary) hypertension (10) Low back pain Current Visit: Yes Status: Chronic Qualifiers: Chronicity: chronic (11) Drug-induced mood disorder Current Visit: Yes Status: Suspected (12) Seizure Current Visit: No Status: Chronic (13) Hypokalemia Current Visit: Yes Status: Acute - AMA Did Patient Leave Against Medical Advice: Yes (Instructed to call 911 if feels sick or any withdrawal symptoms)
[2017-12-28] MEDS ORDERED: chlordiazePOXIDE 5 MG CAPSULE PO SCH (05:00)
[2017-12-28] MEDS ORDERED: chlordiazePOXIDE HCL 10 MG CAPSULE PO SCH (05:00)
[2017-12-28] MEDS ORDERED: METHADONE HCL 5 MG TABLET (FOR DETOX USE ONLY) PO SCH (10:00)
[2017-12-29] MEDS ORDERED: chlordiazePOXIDE HCL 10 MG CAPSULE PO SCH (05:00)
[2017-12-29] MEDS ORDERED: METHADONE HCL 10 MG TABLET (FOR DETOX USE ONLY) PO SCH (10:00)
[2017-12-30] MEDS ORDERED: METHADONE HCL 5 MG TABLET (FOR DETOX USE ONLY) PO SCH (06:00)
[2017-12-30] MEDS ORDERED: METHADONE HCL 10 MG TABLET (FOR DETOX USE ONLY) PO SCH (10:00)
[2017-12-31] MEDS ORDERED: METHADONE HCL 5 MG TABLET (FOR DETOX USE ONLY) PO SCH (06:00)
== END 2017-12-27 13:57 | disposition left against medical advice (07) | DRG 770 ==
LOC: YASAS 16:15 → Y3N 12-26 00:27
PROVIDERS: ADMIT Neuromusculoskeletal Medicine & OMM; ATTEND Neuromusculoskeletal Medicine & OMM
PROC: HZ2ZZZZ Detoxification Services for Substance Abuse Treatment (ICD-10-PCS; principal; 2017-12-26)
DX: F11.23 Opioid dependence with withdrawal (principal); F10.230 Alcohol dependence with withdrawal, uncomplicated; F14.20 Cocaine dependence, uncomplicated; F12.20 Cannabis dependence, uncomplicated; F17.210 Nicotine dependence, cigarettes, uncomplicated; F19.24 Other psychoactive substance dependence with psychoactive substance-induced mood disorder; E87.6 Hypokalemia; G43.909 Migraine, unspecified, not intractable, without status migrainosus; I10 Essential (primary) hypertension; E78.00 Pure hypercholesterolemia, unspecified; M54.5 Low back pain; G89.29 Other chronic pain; R79.89 Other specified abnormal findings of blood chemistry; R81 Glycosuria; Z86.69 Personal history of other diseases of the nervous system and sense organs
CPT/HCPCS: 36415; 80053; 81003; 84132; 85027; 86593; 87389; J0735

== ENCOUNTER 2023-04-08 09:14 | Emergency (ER) | payer OTHER ==
[2023-04-08 09:36] VITALS: PULSE 77; RESP 18; TEMP 98; BMI 25.0
[2023-04-08 10:36] VITALS: BP 122/64
== END 2023-04-08 12:09 | disposition home or self-care (01) ==
LOC: JER 09:14
DX: F11.29 Opioid dependence with unspecified opioid-induced disorder (principal); M54.9 Dorsalgia, unspecified; G89.29 Other chronic pain; R45.1 Restlessness and agitation; I10 Essential (primary) hypertension
CPT/HCPCS: 99283-25